=== PATIENT | female | born 1985 | race Hispanic/Latino ===

== ENCOUNTER 2018-09-10 18:49 | Emergency (ER) | payer SELFPAY ==
[~2018-09-10 18:49] MED LIST: ISOVUE-370 76%-LOCM 1 ML ONE
[2018-09-10] MEDS ORDERED: Ketorolac Tromethamine 30 MG/ML VIAL ONE ×2 (19:42→19:43)
[2018-09-10 20:05] LABS: #Eosinphils 0.3 thou/uL (0.0-0.7); #Lymphocytes 1.8 thou/uL (1.20-3.40); #Monocytes 0.6 thou/uL (0.11-0.59); #Neutrophils 9.7 thou/uL (1.40-6.50); %Basophils 0.2 % (0.0-1.0); %Eosinophils 2.1 % (0.0-10.0); %Lymphocytes 14.6 % (21.0-51.0); %Monocytes 5.1 % (0.0-10.0); Hemoglobin 12.7 g/dL (12.0-16.0); Mean Corpuscular HGB CONC 32.5 g/dL (32.0-36.0); Mean Corpuscular Hemoglobin 27.8 pg (27.0-31.0); Mean Corpuscular Volume 85.6 fL (78.0-98.0); Mean Platelet Volume 9.4 fL (7.4-10.4); Platelet Count 256 thou/uL (130-400); RBC Distribution Width 11.5 % (11.5-14.5); Red Blood Cell (RBC) Count 4.59 mill/uL (4.20-5.40); White Blood Cell (WBC) Count 12.5 thou/uL (4.8-10.8)
[2018-09-10 20:27] LABS: ALT (SGPT) 17 U/L (8-55); AST (SGOT) 17 U/L (5-34); Albumin 4.3 g/dL (3.5-5.0); Alkaline Phosphatase 89 U/L (40-150); Anion Gap 13 mmol/L (10-20); BUN (Urea Nitrogen) 11 mg/dL (7.0-18.7); Bilirubin, Total 0.6 mg/dL (0.2-1.2); CK (CPK) 92 U/L (29-168); Calc. Creatinine Clearance 0 mL/min (70-130); Calcium 9.7 mg/dL (7.8-10.44); Carbon Dioxide 25 mmol/L (22-29); Chloride 106 mmol/L (98-107); Estimated GFR-MDRD 85; Globulin 3.3 g/dL (2.4-3.5); Glucose 94 mg/dL (70-105); Potassium 3.7 mmol/L (3.5-5.1); Protein, Total 7.6 g/dL (6.0-8.3); Sodium 140 mmol/L (136-145)
[2018-09-10 20:56] LABS: Pregnancy Test - Urine (BHCG) Negative (Negative); Pregu Control Background? CLEAR/WHITE (CLR/WHITE); Pregu Control Bar Appear? YES (CONTROL BAR); Specific Gravity 1.017 (1.002-1.036)
--- NOTE | 2018-09-10 21:13 | CT ---
EXAM: Soft tissue neck CT scan with contrast: HISTORY: Near pain neck swelling and warmth, headache, blurred vision COMPARISON: None FINDINGS: The soft tissues of the neck are within normal limits without evidence for adenopathy or other soft t issue mass. The thyroid gland is normal. The airway is within normal limits with no evidence for obstructing lesion. The vasculature is within normal limits as visualized. The visualized portions of the head and upper chest are within normal limits. IMPRESSION: Unremarkable CT examination of the soft tissue neck.
[2018-09-10] MEDS ORDERED: Morphine 4 MG/ML VIAL ONE (21:19)
[2018-09-10] MEDS ORDERED: Dexamethasone 4 mg/ml Vial ONE (21:19)
== END 2018-09-10 22:06 | disposition home or self-care (01) ==
LOC: ERS 18:49
DX: T78.40XA Allergy, unspecified, initial encounter (principal); M54.2 Cervicalgia; R50.9 Fever, unspecified
CPT/HCPCS: 36415; 70491; 80053; 81025; 82550; 83605; 85025; 87040; 87081; 87430; 87804; 94760; 96361; 96374; 96375; J1100; J1885; J2270; Q9966

== ENCOUNTER 2019-02-11 20:12 | Emergency (ER) | payer SELFPAY ==
--- NOTE | 2019-02-11 20:33 | RAD ---
EXAM: 3 views of the left foot HISTORY: Foot pain after fall one week ago COMPARISON: None FINDINGS: 3 views of the foot shows no evidence of acute fracture or dislocation. No soft tissue swel ling is seen. No degenerative changes are present. IMPRESSION: No evidence of acute osseous abnormality.
[2019-02-11] MEDS ORDERED: Ketorolac Tromethamine 30 MG/ML VIAL ONE (21:06)
--- NOTE | 2019-02-11 21:10 | RAD ---
EXAM: 2 views of the left hip HISTORY: Left hip pain after fall COMPARISON: None FINDINGS: 2 views of the left hip shows no evidence of acute fracture or dislocation. No degenerative changes are seen. No soft tissue swelling is present. IMPRESSION: No evidence of acute osseous abnormality.
== END 2019-02-11 22:12 | disposition home or self-care (01) ==
LOC: ERS 20:12
DX: M79.672 Pain in left foot (principal); M79.89 Other specified soft tissue disorders; W18.2XXA Fall in (into) shower or empty bathtub, initial encounter
CPT/HCPCS: 96372; J1885